=== PATIENT | male | born 1990 | race Caucasian/White ===

== ENCOUNTER 2022-12-10 23:13 | Emergency (ER) | payer SELFPAY ==
[~2022-12-10] VITALS: Ht 177.8 cm; Wt 99.8 kg
[2022-12-10 23:28] VITALS: BP 136/97
[2022-12-10] MEDS ORDERED: KETOROLAC 30 MG/ML VIAL IVP STA (23:35)
[2022-12-10] MEDS ORDERED: LACTATED RINGERS 1,000 ML IV ONE (23:45)
[2022-12-10] MEDS ORDERED: ONDANSETRON 4 MG/2 ML (SDV) Z0FRAN IVP ONE (23:45)
[2022-12-10 23:47] LABS: BASOPHILS # (AUTO) 0.1 10^3/uL (0.0-0.1); BASOPHILS % (AUTO) 0 % (0-10); EOSINOPHILS # (AUTO) 0.1 10^3/uL (0.0-0.3); EOSINOPHILS % (AUTO) 0 % (0-10); HEMATOCRIT 48 % (40-54); HEMOGLOBIN 16.1 g/dL (13.3-17.7); LYMPHOCYTES # (AUTO) 2.3 10^3/uL (1.0-4.0); LYMPHOCYTES % (AUTO) 10 % (12-44); MEAN CORPUSCULAR HEMOGLOBIN 27 pg (25-34); MEAN CORPUSCULAR HGB CONC 34 g/dL (32-36); MEAN CORPUSCULAR VOLUME 81 fL (80-99); MEAN PLATELET VOLUME 9.5 fL (9.0-12.2); MONOCYTES % (AUTO) 4 % (0-12); NEUTROPHILS # (AUTO) 19.4 10^3/uL (1.8-7.8); NEUTROPHILS % (AUTO) 84 % (42-75); PLATELET COUNT 339 10^3/uL (130-400)
[2022-12-10 23:50] LABS: ALBUMIN 4.5 GM/DL (3.2-4.5); POTASSIUM 4.2 MMOL/L (3.6-5.0)
--- NOTE | 2022-12-10 23:51 | ED Abdominal Pain ---
General Chief Complaint: Abdominal/GI Problems Stated Complaint: LOWER RIGHT SIDE ABD PAIN V/D Source of Information: Patient History of Present Illness Date Seen by Provider: Dec 10, 2022 Time Seen by Provider: 23:29 Initial Comments PT ARRIVES VIA POV FROM HOME WITH FEMALE C/O GENERALIZED ABDOMINAL PAIN THAT MOVES AROUND ALL OVER ABDOMEN, SINCE 2200 TO NIGHT HE HAS HAD NAUSEA/VOMITING/DIARRHEA WELL HAS VOMITED ABOUT 3 TIMES AND HAS HAD DIARRHEA X3. STATES STOOL HAS BEEN DARK WAS SITTING AT THE TIME, WHEN SYMPTOMS BEGAN NO FEVER NO KNOWN SICK CONTACTS OR SUSPICIOUS FOODS ATE PEANUT BUTTER AND JELLY SANDWICH AROUND 1500 THIS AFTERNOON FELT FINE ALL DAY, UNTIL 2200 TONIGHT LAST VOID WAS SOMETIME THIS EVENING NO HISTORY OF SIMILAR NO PRIOR SURGERIES OF ANY KIND DENIES ANY MEDICAL PROBLEMS, BUT DOES NOT GO TO DR. HAS NOT TAKEN ANYTHING FOR SYMPTOMS PT SMOKES 1 PPD, OCCASIONAL ETOH--DENIES USE TODAY, AND SMOKES MARIJUANA DAILY PT IS NOT COVID OR FLU VACCINATED PCP: NONE Allergies and Home Medications Allergies Uncoded Allergies: FAUSTO (Allergy, 05/01/10) Review of Systems Review of Systems Constitutional: no symptoms reported EENTM: No Symptoms Reported Respiratory: No Symptoms Reported Cardiovascular: No Symptoms Reported Gastrointestinal: See HPI, Abdominal Pain, Diarrhea, Nausea, Vomiting Genitourinary: No Symptoms Reported Musculoskeletal: no symptoms reported Skin: no symptoms reported Psychiatric/Neurological: No Symptoms Reported Endocrine: No Symptoms Reported Hematologic/Lymphatic: No Symptoms Reported Past Xzrmokn-Tfmdhc-Mtsmks Hx Patient Social History Tobacco Use?: Yes Tobacco type used: Cigarettes Smoking Status: Current Everyday Smoker Substance use?: Yes Substance type: Marijuana Substance frequency: Daily Alcohol Use?: Yes Alcohol Frequency: Couple times a week Immunizations Up To Date Influenza Vaccine Up-to-Date: No; Not Current Past Medical History Surgeries: No Physical Exam Vital Signs Capillary Refill : Height/Weight/BMI Height: '" Weight: lbs. oz. kg; BMI Method: General Appearance: WD/WN, no apparent distress, other (VERY DRAMATIC, HOLDING LEFT MID ABDOMEN DURING EXAM; HARSH, LOUD, FORCED RETCHING. KEEPS HEAD DOWN, SITTING ON SIDE OF BED, DOES NOT MAKE EYE CONTACT. 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, no motor/sensory deficits, alert, oriented x 3 Skin: normal color, warm/dry, tattoos/piercings (MULTIPLE TATTOOS) Progress/Results/Core Measures Results/Orders Lab Results Laboratory Tests Test 12/10/22 23:30 Range/Units My Orders Orders - ISAAK MCKEON DO Ed Iv/Invasive Line Start (12/10/22 23:28) Cbc With Automated Diff (12/10/22 23:28) Comprehensive Metabolic Panel (12/10/22 23:28) Hs C Reactive Protein (12/10/22 23:28) Ua Culture If Indicated (12/10/22 23:28) Erythrocyte Sedimentation Rate (12/10/22:28) Ct Abd/Pelv W (Appendicitis) (12/10/22 23:35) Ed Iv/Invasive Line Start (12/10/22 23:35) Alcohol (12/10/22 23:35) Amylase (12/10/22 23:35) Lipase (12/10/22 23:35) Ed Iv/Invasive Line Start (12/10/22 23:35) Lactated Ringers (Lr 1000 Ml Iv Solution (12/10/22 23:45) Ondansetron Injection (Zofran Injectio (12/10/22 23:45) Ketorolac Injection (Toradol Injection) (12/10/22 23:35) Drug Screen Stat (Urine) (12/10/22 23:35) Medications Given in ED Current Medications Medications Dose Ordered Sig/Rani Route Start Time Stop Time Status Last Admin Dose Admin Lactated Ringer's 1,000 ml @ 0 mls/hr Q0M ONCE IV 12/10/22 23:45 12/10/22 23:46 12/10/22 23:42 999 MLS/HR Ondansetron HCl 8 mg ONCE ONCE IVP 12/10/22 23:45 12/10/22 23:46 12/10/22 23:42 8 MG Progress Progress Note : Progress Note GIVEN: -IV FLUIDS -ZOFRAN -TORADOL Departure Departure-Patient Inst. Referrals: NO,LOCAL PHYSICIAN (PCP/Family) Primary Care Physician Scripts No Active Prescriptions or Reported Meds ISAAK MCKEON DO Dec 10, 2022 23:51
[2022-12-10 23:52] LABS: AMYLASE 28 U/L (25-125); CALCIUM 10.1 MG/DL (8.5-10.1)
[2022-12-10 23:53] LABS: TOTAL PROTEIN 8.7 GM/DL (6.4-8.2)
[2022-12-10 23:54] LABS: BILIRUBIN,TOTAL 0.4 MG/DL (0.1-1.0)
[2022-12-10 23:56] LABS: CREATININE SERUM 0.98 MG/DL (0.60-1.30)
[2022-12-11] LABS: LIPASE 22 U/L (8-78)
[2022-12-11] MEDS ORDERED: CATHETER FLUSH 10 ML SYR IV PRN
[2022-12-11] MEDS ORDERED: NS 100 ML (IVPB) BAG IV ONE
[2022-12-11] MEDS ORDERED: IOHEXOL 350 MG/ML 100 ML (OMNIPAQUE 350) VIAL IV ONE
[2022-12-11 00:04] LABS: ERYTHROCYTE SEDIMENTATION RATE 9 MM/HR (0-15)
[2022-12-11 00:32] LABS: BAND NEUTROPHILS 2 %; LYMPHOCYTES % (MANUAL) 16 %; MICROCYTOSIS SLIGHT; MONOCYTES % (MANUAL) 4 %; NEUTROPHILS % (MANUAL) 78 %
[2022-12-11] MEDS ORDERED: LACTATED RINGERS 1,000 ML IV ONE (00:45)
--- NOTE | 2022-12-11 08:01 | Diagnostic Imaging Report ---
PROCEDURE: CT abdomen and pelvis with contrast, rule out appendicitis. TECHNIQUE: Multiple contiguous axial images were obtained through the abdomen and pelvis after the administration of intravenous contrast. All CT scans use one or more of the following dose optimizing techniques: automated exposure control, MA and/or KvP adjustment based on patient size and exam type or iterative reconstruction. INDICATION: Right lower quadrant abdominal pain. No focal hepatic, gallbladder, pancreatic, splenic or adrenal gland abnormality is identified. Kidneys are also unremarkable. Note is made of fluid distention of small bowel with moderate mural thickening throughout the mid and distal small bowel loops. There is no evidence of free fluid. No organized fluid collection or focal inflammation is identified. Unopacified bladder is unremarkable. No appendiceal inflammation is identified. There is fluid present throughout the colon. IMPRESSION: Findings are suggestive of enteritis without obstruction. Fluid in the colon indicates diarrhea without other focal inflammation detected. In particular, there is no evidence of inflammation in the region of the appendix. Dictated by: Dictated on workstation # [id number]
== END 2022-12-11 00:45 | disposition left against medical advice (07) ==
LOC: EDUNIT# 23:13 → ER 23:16
DX: R10.84 Generalized abdominal pain (principal); R11.10 Vomiting, unspecified; R19.7 Diarrhea, unspecified; F17.210 Nicotine dependence, cigarettes, uncomplicated; Z28.310 Unvaccinated for COVID-19
CPT/HCPCS: 74177; 80053; 82150; 83690; 85007; 85027; 85652; 86141; 99284; G0480; 36415; 80320